=== PATIENT | female | born 1990 | race Caucasian/White ===

== ENCOUNTER 2023-06-14 14:32 | Inpatient (IN) ==
[2023-06-14] MEDS ORDERED: Lorazepam PYXIS KEY PRN (14:52)
[2023-06-14] MEDS ORDERED: Haloperidol 5 mg/ml SDV IV/IM 5 MG/ML AMP IM ONE (14:52)
[2023-06-14] MEDS ORDERED: LORazepam 2 mg VIAL 1 ml IM ONE (14:52)
[2023-06-14] MEDS ORDERED: LORazepam 2 mg VIAL 1 ml ONE (14:53)
[2023-06-14 15:25] LABS: ABS Basophils 0.1 10^3/uL (0.0-0.1); ABS Eosinophils 0.1 10^3/uL (0.0-0.5); ABS Lymphocytes 1.5 10^3/uL (1.0-4.8); ABS Monocytes 0.7 10^3/uL (0.0-0.9); ABS Neutrophils 5.7 10^3/uL (1.5-7.6); ABS Nucleated RBC 0.01 10^3/ul; Eosinophil % 1.2 %; Hematocrit 38.6 % (35-45); Hemoglobin 12.8 g/dL (11.5-14.3); Lymphocyte % 18.3 %; Mean Corpuscular Hemoglobin 26.1 pg (27-33); Mean Corpuscular Hgb Conc 33.2 g/dL (31-36); Mean Corpuscular Volume 78.7 fL (80-97); Mean Platelet Volume 10.2 fL (7.5-11.2); Nucleated Red Blood Cells % 0.1 %/100WBC (0.0-0.8); Platelet Count 310 10^3/uL (150-450); Red Blood Count 4.91 10^6/uL (3.63-4.92); Red Cell Distribution Width 15.4 % (12-17); White Blood Count 8.1 10^3/uL (3.8-11.8)
[2023-06-14 15:45] LABS: ALT 29 U/L (7-52); AST 49 U/L (13-39); Albumin 5.2 g/dL (3.2-5.2); Albumin/Globulin Ratio 1.9 (1-3); Alkaline Phosphatase 54 U/L (35-149); Anion Gap 14 mmol/L (2-16); Blood Urea Nitrogen 21 mg/dL (6-24); CO2 Carbon Dioxide 21 mmol/L (22-32); Calcium 9.9 mg/dL (8.6-10.3); Chloride 107 mmol/L (101-111); Creatine Kinase 1462 U/L (10-223); Creatinine, Serum 1.07 mg/dL (0.51-0.95); Globulin 2.8 g/dL (2-4); Glucose 94 mg/dL (70-100); Sodium 142 mmol/L (135-145); Total Bilirubin 1.8 mg/dL (0.2-1.0); eGFR CKD-EPI 70.3 (>60)
[2023-06-14 16:17] LABS: Urine Appearance Cloudy; Urine Bilirubin Negative (Negative); Urine Blood 3+ (Negative); Urine Color Yellow; Urine Glucose Negative (Negative); Urine Ketones 1+ (Negative); Urine Nitrite Negative (Negative); Urine Protein 1+(30 mg/dL) (Negative); Urine Urobilinogen Negative (Negative)
[2023-06-14 16:46] LABS: Acetaminophen < 15 mcg/mL; Alcohol, S < 13 mg/dL (<13); Salicylate < 2.50 mg/dL (<30)
[2023-06-14 16:55] LABS: Urine Benzodiazepine Screen None Detected (None Detect); Urine Cannabinoids Screen None Detected (None Detect); Urine Opiates Screen None Detected (None Detect)
[2023-06-14 17:01] LABS: TSH Ultra Thyroid Stim Horm 2.66 mcIU/mL (0.34-5.60)
[2023-06-14 19:01] LABS: HCG Pregnancy < 0.60 mIU/mL
[2023-06-14 19:04] LABS: Urine Bacteria Absent (Absent); Urine Red Blood Cell 3+(>10/hpf) (Absent); Urine Squamous Epithelial Cell Present (Absent); Urine White Blood Cell Trace(0-5/hpf) (Absent)
[2023-06-14] MEDS ORDERED: Al Hydrox/Mg Hydrox/Simet LIQ 30 ML UDC PO PRN (21:54)
[2023-06-15 08:16] LABS: HDL Cholesterol 70.9 mg/dL
[2023-06-15] MEDS: Vitamin THERAPEUTIC TAB PO SCH (09:12)
[2023-06-15] MEDS: Lithium Carbonate ER 450mg TAB PO SCH (20:26)
[2023-06-16] MEDS: Vitamin THERAPEUTIC TAB PO SCH (09:37)
[2023-06-16] MEDS: Lithium Carbonate ER 450mg TAB PO SCH ×2 (18:12→21:31)
[2023-06-17] MEDS: Vitamin THERAPEUTIC TAB PO SCH (08:08)
[2023-06-17] MEDS: Lithium Carbonate ER 450mg TAB PO SCH (20:59)
[2023-06-18] MEDS ORDERED: Paliperidone SUSTENNA 234 MG/1.5 ML IM ONE (09:54)
[2023-06-18] MEDS: Vitamin THERAPEUTIC TAB PO SCH (10:50)
[2023-06-18] MEDS: Lithium Carbonate ER 450mg TAB PO SCH (21:36)
[2023-06-19] MEDS: Vitamin THERAPEUTIC TAB PO SCH (08:31)
[2023-06-19] MEDS: Lithium Carbonate ER 450mg TAB PO SCH (20:57)
[2023-06-20] MEDS: Vitamin THERAPEUTIC TAB PO SCH (08:48)
[2023-06-20] MEDS: Lithium Carbonate ER 450mg TAB PO SCH (21:09)
[2023-06-21] MEDS: Vitamin THERAPEUTIC TAB PO SCH (07:46)
[2023-06-21] MEDS: Lithium Carbonate ER 450mg TAB PO SCH (20:55)
[2023-06-22] MEDS: Vitamin THERAPEUTIC TAB PO SCH (09:00)
[2023-06-22] MEDS ORDERED: Paliperidone SUSTENNA 156 MG/1 ML IM ONE (13:29)
[2023-06-22] MEDS: Lithium Carbonate ER 450mg TAB PO SCH (20:25)
[2023-06-23] MEDS: Vitamin THERAPEUTIC TAB PO SCH (07:43)
[2023-06-23] MEDS: Lithium Carbonate ER 450mg TAB PO SCH (21:01)
[2023-06-24] MEDS: Vitamin THERAPEUTIC TAB PO SCH (09:09)
[2023-06-24] MEDS: Lithium Carbonate ER 450mg TAB PO SCH (21:09)
[2023-06-25] MEDS: Vitamin THERAPEUTIC TAB PO SCH (12:26)
[2023-06-25] MEDS: Lithium Carbonate ER 450mg TAB PO SCH (21:55)
[2023-06-26] MEDS: Vitamin THERAPEUTIC TAB PO SCH (10:56)
[2023-06-26] MEDS: Lithium Carbonate ER 450mg TAB PO SCH (20:34)
[2023-06-27] MEDS: Vitamin THERAPEUTIC TAB PO SCH (10:32)
[2023-06-27] MEDS: Lithium Carbonate ER 450mg TAB PO SCH (20:49)
[2023-06-28] MEDS: Vitamin THERAPEUTIC TAB PO SCH (10:38)
[2023-06-28] MEDS: Lithium Carbonate ER 450mg TAB PO SCH (20:59)
[2023-06-29] MEDS: Vitamin THERAPEUTIC TAB PO SCH (09:00)
[2023-06-29] MEDS: Lithium Carbonate ER 450mg TAB PO SCH (21:21)
[2023-06-30] MEDS: Vitamin THERAPEUTIC TAB PO SCH (08:33)
[2023-06-30] MEDS ORDERED: Ondansetron ODT 4 mg TAB 4 MG TAB ONE (16:46)
[2023-06-30] MEDS ORDERED: Ondansetron ODT 4 mg TAB 4 MG TAB PO PRN (16:47)
[2023-06-30] MEDS: Lithium Carbonate ER 450mg TAB PO SCH (20:46)
[2023-07-01] MEDS: Vitamin THERAPEUTIC TAB PO SCH (08:24)
[2023-07-01 09:06] VITALS: BP 120/64
== END 2023-07-01 13:45 | disposition home or self-care (01) | DRG 885 ==
LOC: ED 14:32 → EDHOLD 18:08 → BSU 22:05
PROVIDERS: ADMIT Psychiatry & Neurology Psychiatry; ATTEND Student in an Organized Health Care Education/Training Program